=== PATIENT | male | born 1995 | race Two or more races ===

== ENCOUNTER 2017-09-07 14:36 | Inpatient (IN) | payer BC ==
--- NOTE | 2017-09-07 14:46 | ED PDOC ---
Arrival/HPI - General Time Seen by Provider: 09/07/17 14:36 Historian: Patient - History of Present Illness Narrative History of Present Illness (Text): 09/07/17 14:43 A 21 year old male is a psychiatric transfer from [facility]. The patient was seen and accepted to the psychiatric service upon arrival. The patient currently denies fevers, chills, headache, dizziness, chest pain, shortness of breath, dyspnea on exertion, cough, abdominal pain, nausea, vomiting, diarrhea, back pain, neck pain, urinary/bowel changes, or any other complaint. Time/Duration: Prior to Arrival Symptom Onset: Sudden Symptom Course: Unchanged Activities at Onset: Rest, Light Context: Other ([facility]) Past Medical History - Provider Review Nursing Documentation Reviewed: Yes Family/Social History - Physician Review Nursing Documentation Reviewed: Yes Family/Social History: No Known Family HX Allergies/Home Meds Allergies/Adverse Reactions: Allergies No Known Allergies Allergy (Verified 09/07/17 14:44) Home Medications: Home Meds Medication Instructions Recorded Confirmed Risperidone [Risperdal] 0 mg PO DAILY 09/07/17 09/07/17 Review of Systems - Physician Review All systems were reviewed & negative as marked: Yes - Review of Systems Constitutional: absent: Fevers, Night Sweats Respiratory: absent: SOB, Cough Cardiovascular: absent: Chest Pain, DEWITT Gastrointestinal: absent: Abdominal Pain, Stool Changes, Diarrhea, Nausea, Vomiting Genitourinary Male: absent: Urinary Output Changes Musculoskeletal: absent: Back Pain, Neck Pain Neurological: absent: Headache, Dizziness Psychiatric: Other (Transfer to psychiatric service from [facility].) Physical Exam Vital Signs Reviewed: Yes Vital Signs Temp Pulse Resp BP Pulse Ox 09/07/17 14:45 98.2 F 92 H 16 132/70 100 Temperature: Afebrile Blood Pressure: Normal Pulse: Tachycardic Respiratory Rate: Normal Appearance: Positive for: Well-Appearing, Non-Toxic, Comfortable Pain Distress: None Mental Status: Positive for: Alert and Oriented X 3 - Systems Exam Head: Present: Atraumatic, Normocephalic Pupils: Present: PERRL Conjunctiva: Present: Normal Mouth: Present: Moist Mucous Membranes Neck: Present: Normal Range of Motion Respiratory/Chest: Present: Clear to Auscultation, Good Air Exchange. No: Respiratory Distress, Accessory Muscle Use Cardiovascular: Present: Regular Rate and Rhythm, Normal S1, S2. No: Murmurs Abdomen: Present: Normal Bowel Sounds. No: Tenderness, Distention, Peritoneal Signs Back: Present: Normal Inspection Upper Extremity: Present: Normal Inspection. No: Cyanosis, Edema Lower Extremity: Present: Normal Inspection. No: Edema Neurological: Present: GCS=15, CN II-XII Intact, Speech Normal Skin: Present: Warm, Dry, Normal Color. No: Rashes Psychiatric: Present: Alert, Oriented x 3, Normal Insight, Normal Concentration Medical Decision Making ED Course and Treatment: 09/07/17 14:47 Impression: A 21 year old male presents to the emergency department as a psychiatric transfer from [facility]. Plan: -- Reassess and disposition Progress Notes: - Scribe Statement The provider has reviewed the documentation as recorded by the Scribe Felicita Becerra Provider Scribe Attestation: All medical record entries made by the Scribe were at my direction and personally dictated by me. I have reviewed the chart and agree that the record accurately reflects my personal performance of the history, physical exam, medical decision making, and the department course for this patient. I have also personally directed, reviewed, and agree with the discharge instructions and disposition. Disposition/Present on Arrival - Present on Arrival Any Indicators Present on Arrival: No - Disposition Have Diagnosis and Disposition been Completed?: Yes Diagnosis: Depression Disposition: HOSPITALIZED Disposition Time: 04:30 Patient Problems: Current Active Problems Problem Status Onset Depression Acute Condition: STABLE
[2017-09-07] MEDS ORDERED: Magnesium Hydroxide Susp 30 ml UD PO PRN (16:36)
[2017-09-07 22:28] VITALS: O2SAT 99
--- NOTE | 2017-09-08 00:45 | PCM.BM ---
<Mario Santa C - Last Filed: 09/08/17 00:42> Treatment Plan Problems - Problems identified on initial assessmt PARANOID DISORDER Date Initiated: 09/07/17 Time Initiated: 20:00 Assessment reference: NA Status: Active ANXIETY Date Initiated: 09/07/17 Time Initiated: 20:00 Treatment assets and liabiliti Patient Assests: cooperative, self-reliant, ADL independent, physically healthy , good support system, negotiates basic needs, cognitively intact Patient Liabilities: financial problems - Milieu Protocol Maintain good personal hygiene: daily Encourage regular showers, every shift Remind patient to perform daily oral care Maintain personal safety: every shift Educate patient to report safety concerns to staff, every shift Monitor environment for contraband/sharps Medication safety: Monitor for expected outcome, potential side effects: every shift, Assess readiness for medication education: every shift Family Contact Family involvement: Family/SO is involved Family contact: Patient agrees to contact Discharge/Continuing Care - Education Needs Education Needs: Patient Medication, Patient Diagnosis/Disease Process, Patient Coping Skills, Patient Community resources, Patient Activities of Daily Living, Patient Health Practices/Safety, Patient Personal Hygiene/Grooming, Patient Aftercare Safety Plan - Discharge Discharge Criteria: Tolerates medication w/o severe side effects, Free of paranoid thoughts, Free of agitation, Normal sleep pattern, Ability to care for self <Juliana Mccoy A - Last Filed: 09/09/17 14:56> Treatment Plan Problems - Problems identified on initial assessmt PARANOID DISORDER Date Initiated: 09/07/17 Time Initiated: 20:00 Assessment reference: NA Status: Active ANXIETY Date Initiated: 09/07/17 Time Initiated: 20:00 ANXIETY Date Initiated: 09/07/17 Time Initiated: 20:00 - Diagnosis (1) Schizoaffective disorder Status: Acute Interventions: 09/09/17 10:12 Psychoeducation/psychotherapy Psychopharmacology/adjustment of medications as needed/ monitoring possible side effects Evaluate pt on daily basis Compliance with medications and follow up appointments Long acting medication discussed with pt, pt was noncompliant with meds Suicide and homicide risk assessment and prevention, coping strategies, safety plan Relapse prevention Reduction of symptoms Improve functional status Possible assertive community treatment Cognitive behavioral therapy Family involvement, pt give consent for collaterals, SW asked to give a call Possible social skill training as outpatient 12/04/17 14:56 <Mick Monae - Last Filed: 09/10/17 16:54> Treatment Plan Problems - Problems identified on initial assessmt Altered Thought Process Date Initiated: 09/10/17 Time Initiated: 16:56 Assessment reference: NA Status: Active Priority: 1 Delusions Date Initiated: 09/10/17 Time Initiated: 16:56 Status: Active Priority: 2 <Argenis Lawson - Last Filed: 09/13/17 10:01> Family Contact Family involvement: Family/SO is involved Family contact: Patient agrees to contact Family contact name: Benson Lin, brother Family contacted how many times per week?: 2
[2017-09-08 07:44] LABS: CHOLESTEROL 129 mg/dL (130-200); GLUCOSE,FASTING 86 mg/dL (65-110)
--- NOTE | 2017-09-08 10:18 | PCM.PSYCH ---
Initial Psychiatric Evaluation - Initial Psychiatric Evaluation Type of Admission: Voluntary History of Present Illness and Precipitating Events: Patient is a single 21 year old male with reported history of bipolar disorder and schizophrenia (likely Schizoaffective disorder), at least 10 prior psychiatric hospitalizations-just recently 2011, noncompliance with medications for at least three months, who was transferred from [facility] after he was brought in by ambulance accompanied by his brother. Apparently patient became lost wandering in the community and requested help from a stranger to call his family. The lady called the police because she was concerned that he was behaving strangely. ER records from [facility] indicated that brother was interviewed and reported patient has been a decompensating since stopping his medications a few months ago. Patient has been vegetating and isolating in his room. His hygiene and sleep have been poor. Parents are also very concerned about patient wandering unknown places for hours at a time. Brother also indicated patient punched a wall and verbalize suicidal thoughts last week. I met with patient at bedside. He is disheveled and malodorous. He is aware that is September 2017 however doesn't know where he is. He looks quite preoccupied and responses are generally vague and guarded. Patient initially denies depression and then admits to feeling depressed sometimes. He doesn't know whether he's hopeless or hopeful. He doesn't appear to fully comprehend the question. He denies hallucinations, overt delusions were not elicit during our interview this morning. He is poorly related and his insight about his symptoms and diagnosis is superficial. Thus far he has been in control on the unit and there were no behavioral issues overnight. Patient denies any acute discomfort or pain during my interview with him this morning and has been tolerating medications prescribed thus far. SOCIAL HISTORY Patient was born and raised in [place]. He is single and denies having any children. He lives with his mother and father and brother. He's unemployed. Patient graduate high school. Patient denies any drug or alcohol or tobacco use. PSYCHIATRIC HISTORY [place] records indicate that patient has been psychiatrically hospitalized more than 10 times, most recently in 2011. Patient reports that he used to take risperdal and cogentin but doesn't recall his most recent dose. [place] records also indicate the patient took invega in the past. Patient denies any current outpatient psychiatric treatment. Patient denies having any history of suicide attempts Current Medications: Active Medications Generic Name Dose Route Start Last Admin Trade Name Freq PRN Reason Stop Dose Admin Acetaminophen 650 mg 09/07/17 16:36 Tylenol 325mg Tab PO Q4H PRN Pain, moderate (4-7) Haloperidol 5 mg 09/07/17 18:12 09/07/17 21:17 Haldol PO 5 mg Q6H PRN Administration Anxiety Protocol Haloperidol Lactate 5 mg 09/07/17 17:58 Haldol IM Q6H PRN Agitation Protocol Lorazepam 0.5 mg 09/07/17 22:00 09/07/17 21:17 Ativan PO 0.5 mg ACHS JOSELINE Administration Protocol Lorazepam 2 mg 09/07/17 18:09 Ativan PO Q6H PRN Anxiety Protocol Lorazepam 2 mg 09/07/17 18:10 Ativan IM Q6H PRN Agitation Protocol Magnesium Hydroxide 30 ml 09/07/17 16:36 Milk Of Magnesia PO DAILY PRN Constipation Risperidone 1 mg 09/07/17 22:00 09/07/17 21:17 Risperdal Tab PO 1 mg ACHS JOSELINE Administration Protocol Zaleplon 5 mg 09/07/17 22:00 Sonata PO HS PRN Insomnia Past Psychiatric History - Past Psychiatric History Pertinent Medical Hx (Current Medical&Sleep Prob, Allergies): Allergies Allergy/AdvReac Type Severity Reaction Status Date / Time No Known Allergies Allergy Verified 09/07/17 14:44 Risperidone [Risperdal] 0 mg PO DAILY 09/07/17 Mental Status Examination - Personal Presentation Personal Presentation: Looks stated age - Affect Affect: Constricted, Flat - Motor Activity Motor Activity: Calm - Reliability in Providing Information Reliability in Providing Information: Poor, due to alteration in thoughts - Speech Speech: Disorganized - Mood Mood: Depressed - Formal Thought Process Formal Thought Process: Paranoia, Loosening of associations - Obsessions/Compulsions Obsessions: No Compulsions: No - Cognitive Functions Orientation: Person Attention/Concentration: Easily distracted Estimate of Intelligence: Average Judgement: Imparied, as evidence by: Poor judgement, Imparied, as evidence by: Lack of insight into illness - Risk Risk: Suicidal, Diminished functioning - Strength & Assets Inventory Strength & Assets Inventory: Family support DSM 5 DX - DSM 5 DSM 5 Diagnosis: Schizoaffective Disorder - Recommended/Plan of Treatment Treatment Recommendations and Plan of Treatment: -group, milieu and supportive treatment -Risperdal 2 mg AM and HS for disorganization -Ativan 1 mg AM and HS for thought blocking and mood control as well as EPS prophylaxis -Sonata 5 mg HS prn: insomnia -awaiting medical consult -Vitals reviewed and noted below: Selected Entries 09/07/17 09/07/17 14:45 22:27 Temperature 98.2 F Pulse Rate 92 H 92 H Respiratory 16 20 Rate Blood Pressure 132/70 118/72 [facility] CBC, H/H, PLATELETS WNL UDS NEGATIVE, BAL<10 CHEM 14 WNL [facility]S 09/08/17 09/08/17 07:00 07:00 Fasting Glucose 86 Triglycerides 36 Cholesterol 129 L LDL Cholesterol Direct 70 HDL Cholesterol 49 TSH 3rd Generation 2.17 - Smoking Cessation Smoking Cessation Initiated: No
--- NOTE | 2017-09-08 21:48 | CON ---
DATE: HISTORY OF PRESENT ILLNESS: I met him in his room on the psychiatric floor, he has got very bizarre behavior. He sat down on his bed when we spoke. He comes here from [facility], depression and paranoia. He is very odd man. He is a 21-year-old man transferred from the psychiatric unit to [place] psychiatric unit for his depression, paranoid behavior and odd behavior. He is comfortable at this time. No chest pain. No shortness of breath. No abdominal pain. Apparently, it was sudden onset. FAMILY HISTORY: He denies any family history. ALLERGIES: NO KNOWN DRUG ALLERGIES. SOCIAL HISTORY: No drugs. No smoker. No alcohol. PAST SURGICAL HISTORY: No surgeries. MEDICATIONS: He does take Risperdal, he was not sure why. He states he wants to work on [employer] food business. He does not have a job. He is not in school. REVIEW OF SYSTEMS: No acute vision or hearing changes. No sore throat. No headaches. No shortness of breath. No chest pain. No dyspnea on exertion. No abdominal pain. No problems eating or going to the bathroom. No diarrhea, constipation, nausea or vomiting. No problems urinating. No back pain. No neck pain. No headache or dizziness. Just out of sorts, mentally depressed and he is definitely has paranoid feel to him. PHYSICAL EXAMINATION: VITAL SIGNS: He has a 98.2 temperature, 92 pulse, 16 respiratory rate, 132/78 blood pressure and 100% O2 sat on room air. HEENT: Head is atraumatic and normocephalic. Extraocular muscles intact. Pupils are equal and reactive to light. Throat is moist. NECK: Supple. HEART: Regular rate. LUNGS: Decreased breath sounds, but clear to auscultation. ABDOMEN: Soft. EXTREMITIES: No edema. NEUROLOGIC: GCS is 15. Cranial nerves II through XII grossly intact. He is alert and oriented x3. He is very odd. LABORATORY DATA: He had some blood tests. He had an 86 fasting sugar, 36 triglycerides, 129 cholesterol, LDL 70, HDL 49 and TSH 2.17. I will order a more thorough blood test for tomorrow. ASSESSMENT AND PLAN: We will continue medical involvement and psychiatric care. He is currently on Ativan, Haldol, milk of magnesia, Risperdal, Sonata, Tylenol. I will order labs for tomorrow. Hopefully, he will continue to improve psychologically. At this time, I agree with the depression and paranoid diagnosis and will see what we can find medically. Thank you for allowing me to participate in the care of this young man. Mikey Hurtado DO
[2017-09-09 07:11] LABS: HEMATOCRIT 42.2 % (42.0-52.0); MEAN CELL VOLUME 86.8 fl (80.0-105.0); MEAN CORPUSCULAR HEMOGLOBIN 30.7 pg (25.0-35.0); MEAN CORPUSCULAR HGB CONC 35.3 g/dl (31.0-37.0); RED CELL DISTRIBUTION WIDTH 13.3 % (11.5-14.5); WHITE BLOOD COUNT 6.1 10^3/ul (4.5-11.0)
[2017-09-09 07:30] LABS: ALB/GLOB RATIO 1.7 (1.1-1.8); ALKALINE PHOSPHATASE 57 U/L (38-126); ALT/SGPT 27 U/L (7-56); AST/SGOT 20 U/L (17-59); BILIRUBIN,TOTAL 1.5 mg/dL (0.2-1.3); BLOOD UREA NITROGEN 22 mg/dL (7-21); CALCIUM 9.8 mg/dL (8.4-10.5); CARBON DIOXIDE 27 mmol/L (21-33); CHLORIDE 106 mmol/L (98-107); GFR AFRICAN-AMERICAN > 60; GLUCOSE,RANDOM 85 mg/dL (70-110); POTASSIUM 3.8 mmol/L (3.6-5.0); SODIUM 145 mmol/L (132-148)
--- NOTE | 2017-09-09 09:15 | PN ---
SUBJECTIVE: I saw him in his room in the psych floor. This morning, he was quite groggy, and he was not paying attention to me this morning. He is on Ativan, Haldol, milk of magnesia, Risperdal, Sonata, Tylenol. PHYSICAL EXAMINATION VITAL SIGNS: 97.5 temp, 78 pulse, 118/76 blood pressure, 16 respiratory rate, 99% sat on room air. HEENT: Head is atraumatic and normocephalic. HEART: Regular rate. EXTREMITIES: No edema. LABORATORY DATA: He has a 6.1 white count, 14.9 hemoglobin, 42.2 hematocrit, with 148 platelets, 145 sodium, potassium 3.8, BUN 22, creatinine 0.9, GFR greater than 62, sugar is 85, calcium 9.8, total bilirubin 1.5, AST 20, ALT 27, alkaline phosphatase 57, total protein 7, albumin 4.4, globulin 2.6, TSH 2.17, cholesterol 129, triglycerides 36, LDL 70, HDL 49, RPR is nonreactive. Being seen by psychiatry, and will continue to follow him for depression, paranoid, hopefully he will continue to improve. Mikey Hurtado DO
--- NOTE | 2017-09-09 17:45 | PCM.PYCHPN ---
Psychiatric Progress Note - Psychiatric Progress Note Patient seen today, length of contact: 30min\\ Patient Chief Complaint: "I don't want to talk because I don't know if I could trust you people, identifying now, I was going to the restaurant or something, I did not know what bus I should take, I was kind of confused" Problems Identified/Issues Discussed: Suicide/ homicide prevention, past psychiatric h/o, current psychiatric symptoms , medical problems, risk/benefits and alternatives of medications, medications compliance, coping strategies, substance abuse h/o, relapse prevention, importance of follow up with psychiatrist and therapist, discharge plan. Medical Problems: pt is relatively healthy was seen by medical doctor see notes for more details Diagnostic Results: 09/09/17 06:30 09/09/17 06:30 Lab Results 09/09/17 06:30: Sodium 145, Potassium 3.8, Chloride 106, Carbon Dioxide 27, Anion Gap 16, BUN 22 H, Creatinine 0.9, Est GFR ( Amer) > 60, Est GFR ( Non-Af Amer) > 60, Random Glucose 85, Calcium 9.8, Total Bilirubin 1.5 H, AST 20 , ALT 27, Alkaline Phosphatase 57, Total Protein 7.0, Albumin 4.4, Globulin 2.6 , Albumin/Globulin Ratio 1.7 09/09/17 06:30: WBC 6.1, RBC 4.86, Hgb 14.9, Hct 42.2, MCV 86.8, MCH 30.7, MCHC 35.3, RDW 13.3, Plt Count 148, MPV 9.0 09/08/17 07:00: RPR Nonreactive 09/08/17 07:00: TSH 3rd Generation 2.17 09/08/17 07:00: Fasting Glucose 86, Triglycerides 36, Cholesterol 129 L, LDL Cholesterol Direct 70, HDL Cholesterol 49 Vital Signs Temp Pulse Resp BP Pulse Ox 09/08/17 10:00 97.5 F L 78 16 118/76 09/07/17 22:27 92 H 20 118/72 99 09/07/17 14:45 98.2 F 92 H 16 132/70 100 DSM 5 Symptoms Update: as per 's evaluation: "Patient is a single 21 year old male with reported history of bipolar disorder and schizophrenia (likely Schizoaffective disorder), at least 10 prior psychiatric hospitalizations-just recently 2011, noncompliance with medications for at least three months, who was transferred from [facility] after he was brought in by ambulance accompanied by his brother. Apparently patient became lost wandering in the community and requested help from a stranger to call his family. The lady called the police because she was concerned that he was behaving strangely. ER records from [facility] indicated that brother was interviewed and reported patient has been a decompensating since stopping his medications a few months ago. Patient has been vegetating and isolating in his room. His hygiene and sleep have been poor. Parents are also very concerned about patient wandering unknown places for hours at a time. Brother also indicated patient punched a wall and verbalize suicidal thoughts last week." patient was seen at the treatment team meeting, patient presented to have very poor personal hygiene, uncombed long hair, not shaved for months, poor dental hygiene, presented to be disorganized in his thoughts and behavior, patient was paranoid, difficulties to express his thoughts due to severe thought blocking. as per staff pt was disorganized, but was compliant with meds, pt was agitated, restless yesterday. patient's pharmacy was called [facility] [phone] Benztropine 1 mg twice a day field in June Fluphenazine 5 mg twice a day filled in June Zoloft 50 mg daily filled in June Paliperidone 3 mg by mouth daily filled in June all meds were given by pt gave permission to speak to his brother, SW will call to the pt's family for collaterals Risperdal was started by Dr. Jha 20 mg twice a day, Cogentin also were resumed , we'll consider paliperidone as well as Prolixin. DSM 5 Diagnosis: Schizoaffective Disorder Medication Change: Yes Medical Record Reviewed: Yes Consults ordered or reviewed: medical consult appreciated Mental Status Examination - Cognitive Function Orientation: Person Memory: Impaired Attention: Poor Concentration: Poor Association: Loose Fund of Knowledge: Poor - Mood Mood: Depressed - Affect Affect: Constricted, Flat - Speech Speech: Appropriate (bud disorganized) - Formal Thought Process Formal Thought Process: Paranoia, Loosening of associations, Circumstantial Psychotic Thoughts and Behaviors: pt presented to be disorganized internally preoccupied - Suicidal Ideation Suicidal Ideation: No Plan: denied - Homicidal Ideation Homicidal Ideation: No Plan: denied Goal/Treatment Plan - Goal/Treatment Plan Need for Continued Stay: Remain at risks for inpatient hospitalization, Severe depression anxiety, Discharge may exacerbated symptoms, Severe functional impairment Progress Toward Problem(s) and Goals/Treatment Plan: Milieu/structure/supportive therapy Medical consult appreciated, see medical team note for more detailed info SW consultation for discharge plan and social issues Med management Risperdal 2 mg AM and HS for disorganization cogentin 1mg po amhs for EPS Ativan 1 mg AM and HS for thought blocking and mood control as well as EPS prophylaxis Sonata 5 mg HS prn: insomnia Family involvement Follow up on labs Will monitor closely evaluation for d/c planning Pt was educated about risk/benefits and alternatives of medications, coping strategies (safety plan, suicide prevention), relapse prevention, importance of follow up with psychiatrist and therapist, stay away from drugs/alcohol/smoking Estimated Date of D/C: 09/20/17 (will monitor closely)
--- NOTE | 2017-09-10 12:37 | PN ---
DATE: SUBJECTIVE: I saw him walking in the halls at [address] Psych Floor. We had nice conversation and he is doing better. He is starting to feel better. He is on Ativan, Cogentin, Haldol, milk of magnesia, Risperdal, Sonata, and Tylenol. He is eating well. He is in good spirits. PHYSICAL EXAMINATION: VITAL SIGNS: He has 97.5 temperature, 84 pulse, 122/75 blood pressure, 16 respiratory rate, and 99% O2 sat on room air. HEENT: Head is atraumatic, normocephalic. HEART: Regular rate. LUNGS: Clear to auscultation. ABDOMEN: Soft. EXTREMITIES: No edema. LABORATORY DATA: He has 6.1 white count, 14.9 hemoglobin, and 148 platelets. Sodium 145, potassium 3.8, BUN 22, creatinine 0.9, GFR greater than 62, sugar is 85, calcium 9.8, total bilirubin is 1.5, AST is 20, ALT is 27, mihai phos is 57, total protein is 7, and albumin is 4.4. RPR is nonreactive. ASSESSMENT AND PLAN: He is for the most part comfortable. He may be slightly better than when he came in. We will continue with aggressive treatment and care as per Psychiatry. He has severe depression and anxiety. I will follow along. Mikey Hurtado DO
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
--- NOTE | 2017-09-11 09:47 | PN ---
DATE: SUBJECTIVE: I saw him in his bed this morning. He slept well. He is alert. He is comfortable. He tells me he is feeling better, improving. He is going to groups. He is eating his food. He is still little bit off mentally, but he is definitely better than when I first saw him. PHYSICAL EXAMINATION: VITAL SIGNS: He has got 97.5 temperature, 71 pulse, 112/70 blood pressure, 21 respiratory rate. HEART: Regular rte. LUNGS: Clear to auscultation. EXTREMITIES: No edema. LABORATORY DATA: Last labs from , he did very well. His BUN is 22, creatinine 0.9. MEDICATIONS: He is on Ativan, Cogentin, Haldol, milk of magnesia, Risperdal, Sonata, Tylenol. ASSESSMENT AND PLAN: I asked him to drink more water. He needs aggressive psychiatric care. He is here for depression, anxiety, paranoia. Continue with aggressive treatment and care. I will follow up. Mikey Hurtado DO
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
--- NOTE | 2017-09-12 11:24 | PN ---
DATE: SUBJECTIVE: I saw him in the hospital Psychiatric floor. He is doing much better. He is very alert. He is talking to me better. He is smiling and he seems to be more comfortable in the Psych floor. He said he is going to take a shower this morning. He is eating. He is participating. He is smiling and in better spirits. MEDICATIONS: He is on Ativan, Cogentin, Haldol, milk of magnesia, Risperdal, Sonata, Tylenol. PHYSICAL EXAMINATION: VITAL SIGNS: 98.1 temp, 70 pulse, 120/70 blood pressure, 20 respiratory rate. HEENT: Head is atraumatic and normocephalic. Throat is moist. NECK: Supple. HEART: Regular rate. LUNGS: Clear to auscultation. ABDOMEN: Soft. EXTREMITIES: No edema. LABORATORY DATA: Labs on the , he did very well. ASSESSMENT AND PLAN: He has been seen by Psychiatry. We will continue with aggressive treatment and care on him. I do think he is improving from his depression, anxiety, and paranoia, and as per Psychiatry. Mikey Hurtado DO MTDD
--- NOTE | 2017-09-12 14:31 | PCM.PYCHPN ---
Psychiatric Progress Note - Psychiatric Progress Note Patient seen today, length of contact: 20 Patient Chief Complaint: "I am not sure but I think I am doing OK" Problems Identified/Issues Discussed: Patient is more relaxed, less anxious and he does not bring up any of his earlier concerns regarding wanting to dial 911 or worry over his or his family' s safety. He is not pacing around the unit and is sleeping better. He denies any hallucinations, delusions or paranoia. His paranoia is not evident at this time. He still is not able to take part in unit activities. Medication Change: No Medical Record Reviewed: Yes Mental Status Examination - Cognitive Function Orientation: Person Memory: Impaired Attention: Poor Concentration: Poor Association: Loose Fund of Knowledge: Poor - Mood Mood: Depressed - Affect Affect: Constricted, Flat - Speech Speech: Appropriate (bud disorganized) - Formal Thought Process Formal Thought Process: Paranoia, Loosening of associations, Circumstantial - Suicidal Ideation Suicidal Ideation: No - Homicidal Ideation Homicidal Ideation: No Goal/Treatment Plan - Goal/Treatment Plan Need for Continued Stay: Remain at risks for inpatient hospitalization, Severe depression anxiety, Discharge may exacerbated symptoms, Severe functional impairment Estimated Date of D/C: 09/20/17 (will monitor closely)
--- NOTE | 2017-09-13 09:56 | PCM.PYCHPN ---
Psychiatric Progress Note - Psychiatric Progress Note Patient seen today, length of contact: 25 MIN Patient Chief Complaint: "feeling better" Problems Identified/Issues Discussed: I reviewed recent notes and met with patient at bedside. I am familiar with patient from my initial assessment of him 5 days ago. He still appears unkempt and preoccupied though does seem more oriented and focused. He is aware that is September 2017 and that he is at [facility] however doesn't know the circumstances of his hospitalization. Responses are more spontaneous and fluent. He can express himself better but remains vague and guarded. Patient denies depression and flatly reports that he is "feeling better". He denies hallucinations "never have those", overt delusions were not elicit during our interview this morning. He remains poorly related though insight about his symptoms and diagnosis is improving. Thus far patient has been in control on the unit, family members feel he is getting better. Still paces at times and still cannot meaningfully take part in group discussions. There were no behavioral issues overnight. Diagnostic Results: Schizoaffective Disorder Medication Change: No Medical Record Reviewed: Yes Mental Status Examination - Cognitive Function Orientation: Person, Place Memory: Impaired Attention: Poor Concentration: Poor Association: Loose Fund of Knowledge: Poor - Mood Mood: Depressed ("feeling better") - Affect Affect: Constricted, Flat, Other ( Responses are more spontaneous and fluent. He can express himself better but remains vague and guarded.) - Speech Speech: Appropriate (bud disorganized) - Formal Thought Process Formal Thought Process: Paranoia, Loosening of associations, Circumstantial - Suicidal Ideation Suicidal Ideation: No - Homicidal Ideation Homicidal Ideation: No Goal/Treatment Plan - Goal/Treatment Plan Need for Continued Stay: Remain at risks for inpatient hospitalization, Severe depression anxiety, Discharge may exacerbated symptoms, Severe functional impairment Progress Toward Problem(s) and Goals/Treatment Plan: -group, milieu and supportive treatment -Risperdal 2 mg po TID for disorganization -Cogentin 1 mg po TID for EPS prophylaxis -Ativan 1 mg AM and HS for thought blocking and possible akathesia -Sonata 5 mg HS prn: insomnia -Appreciate f/u by Dr. Hurtado on 09/12/17 -Vitals reviewed and noted below: Selected Entries 12/07/17 12/07/17 12/08/17 08:07 16:46 06:53 Temperature 98.1 F 97.3 F L Pulse Rate 70 84 65 Respiratory 20 20 Rate Blood Pressure 120/70 114/66 110/70 -No new floor labs noted thus far. Estimated Date of D/C: 09/20/17 (will monitor closely)
--- NOTE | 2017-09-13 12:55 | PN ---
SUBJECTIVE: I saw him in his room, sitting in bed. He is alert. He is comfortable. He took his shower yesterday. He tells me he is taking his medications and he is eating. No acute problems or distress with me at this time. He is on Ativan, Cogentin, Haldol, milk of magnesia, Risperdal, Sonata, and Tylenol. PHYSICAL EXAMINATION: VITAL SIGNS: 97.3 temperature, 65 pulse, 110/70 blood pressure, 20 respiratory rate. HEENT: Head is atraumatic, normocephalic. GENERAL: He is alert. He is looking at me. He is talking calmly. HEART: Regular rate. LUNGS: Decreased breath sounds, but clear. ABDOMEN: Soft. EXTREMITIES: No edema. He is currently more calm than the first time I saw him. He is being seen by Psychiatry. He is here for severe depression, anxiety, and paranoia. I do think his paranoia has lifted some. As per Psychiatry, continue aggressive treatment and care and medication adjustment. Mikey Hurtado DO
--- NOTE | 2017-09-14 08:37 | PCM.PYCHPN ---
Psychiatric Progress Note - Psychiatric Progress Note Patient seen today, length of contact: 25 MIN Patient Chief Complaint: "feeling better" Problems Identified/Issues Discussed: I reviewed recent notes and met with patient at bedside. He still appears unkempt and preoccupied though does seem more oriented and focused than last weekend. He is oriented to month, year and location however only superficially understands the reasons for his admission. Responses are more spontaneous and fluent. He can express himself better but remains vague and guarded. Patient denies depression and flatly reports that he is "feeling better". He denies paranoia but looks paranoid and preoccupied. He still denies ever having hallucinations and overt delusions were not elicit during our interview this morning. Patient denies any new discomfort or pain. He doesn't appear to be in any physical distress. Thus far patient has been in control on the unit. Still paces at times and cannot meaningfully take part in group discussions. Paranoid about medications and refused a few of them. There were no behavioral issues overnight. Diagnostic Results: Schizoaffective Disorder Medication Change: No Medical Record Reviewed: Yes Mental Status Examination - Cognitive Function Orientation: Person, Place Memory: Impaired Attention: Poor Concentration: Poor Association: Loose Fund of Knowledge: Poor - Mood Mood: Depressed ("feeling better") - Affect Affect: Constricted, Flat, Other ( Responses are more spontaneous and fluent. He can express himself better but remains vague and guarded.) - Speech Speech: Appropriate (bud disorganized) - Formal Thought Process Formal Thought Process: Paranoia, Loosening of associations, Circumstantial - Suicidal Ideation Suicidal Ideation: No - Homicidal Ideation Homicidal Ideation: No Goal/Treatment Plan - Goal/Treatment Plan Need for Continued Stay: Remain at risks for inpatient hospitalization, Severe depression anxiety, Discharge may exacerbated symptoms, Severe functional impairment Progress Toward Problem(s) and Goals/Treatment Plan: -group, milieu and supportive treatment -Risperdal 2 mg po TID for disorganization -Cogentin 1 mg po TID for EPS prophylaxis -Ativan 1 mg AM and HS for thought blocking and possible akathesia -Sonata 5 mg HS prn: insomnia -Appreciate f/u by Dr. Hurtado on 09/12/17 and 09/13/17 -Vitals reviewed and noted below: Selected Entries 09/12/17 09/12/17 09/13/17 08:07 16:46 06:53 Temperature 98.1 F 97.3 F L Pulse Rate 70 84 65 Respiratory 20 20 Rate Blood Pressure 120/70 114/66 110/70 09/13/17 15:00 Temperature Pulse Rate 66 Respiratory Rate Blood Pressure 95/61 L -No new floor labs noted thus far. Estimated Date of D/C: 09/20/17 (will monitor closely)
--- NOTE | 2017-09-14 12:58 | PN ---
DATE: SUBJECTIVE: I saw him in his room. He is walking around his room. He is alone. He is comfortable in no acute distress. He is eating. He is looking forward to lunch. He is in good spirits at this time. Not sure if he is truly participating. MEDICATIONS: He is on Ativan, Cogentin, Haldol, milk of magnesia, Risperdal, Sonata, and Tylenol. PHYSICAL EXAMINATION: VITAL SIGNS: He has a 97.3 temperature, 65 pulse, 110/70 blood pressure, 20 respiratory rate. HEENT: Head is atraumatic, normocephalic. HEART: Regular rate. LUNGS: Clear to auscultation. ABDOMEN: Soft. EXTREMITIES: No edema. LABORATORY DATA: Last labs on the 09/09/2017, he did well. ASSESSMENT AND PLAN: He is being seen by psychiatry. He has got multiple issues, severe depression, anxiety, and paranoid. Continue to follow him. I am encouraging him to participate and eat meals as per Psychiatry. Mikey Hurtado DO
--- NOTE | 2017-09-15 08:53 | PCM.PYCHPN ---
Psychiatric Progress Note - Psychiatric Progress Note Patient seen today, length of contact: 25 min Patient Chief Complaint: "feeling better" Problems Identified/Issues Discussed: I reviewed recent notes and met with patient at bedside. He still appears unkempt and preoccupied though does seem more oriented and focused than last weekend. He is oriented to month, year and location however only superficially understands the reasons for this admission. Responses are more spontaneous and fluent. He can express himself better but remains vague and guarded. Patient denies depression and flatly reports that he is "feeling better". He denies paranoia but looks paranoid and preoccupied. He still denies ever having hallucinations and overt delusions were not elicit during our interview this morning. Patient denies any new discomfort or pain. He doesn't appear to be in any physical distress. Thus far patient has been in control on the unit. Still paces at times and cannot meaningfully take part in group discussions. Paranoid about medications and refused a few of them over the weekend. Patient has been a little impatient for discharge however there have been no major behavioral issues. He continued to demonstrate poor insight into the severity of his symptoms, diagnosis and necessity of hospitalization. Diagnostic Results: Schizoaffective Disorder Medication Change: No Medical Record Reviewed: Yes Mental Status Examination - Cognitive Function Orientation: Person, Place Memory: Impaired Attention: Poor Concentration: Poor Association: Loose Fund of Knowledge: Poor - Mood Mood: Depressed ("feeling better") - Affect Affect: Constricted, Flat, Other ( Responses are more spontaneous and fluent. He can express himself better but remains vague and guarded.) - Speech Speech: Appropriate (bud disorganized) - Formal Thought Process Formal Thought Process: Paranoia, Loosening of associations, Circumstantial - Suicidal Ideation Suicidal Ideation: No - Homicidal Ideation Homicidal Ideation: No Goal/Treatment Plan - Goal/Treatment Plan Need for Continued Stay: Remain at risks for inpatient hospitalization, Severe depression anxiety, Discharge may exacerbated symptoms, Severe functional impairment Progress Toward Problem(s) and Goals/Treatment Plan: -group, milieu and supportive treatment -Risperdal 2 mg po TID for disorganization -Cogentin 1 mg po TID for EPS prophylaxis -Ativan 1 mg AM and HS for thought blocking and possible akathesia -Sonata 5 mg HS prn: insomnia -Appreciate f/u by Dr. Hurtado on 09/12/17, 09/13/17 and 09/14/17~refer to medical note for more details -Vitals reviewed and noted below: Selected Entries 09/13/17 09/13/17 09/14/17 06:53 15:00 16:15 Temperature 97.3 F L Pulse Rate 65 66 74 Respiratory 20 Rate Blood Pressure 110/70 95/61 L 114/64 -No new weekend floor labs noted thus far. Estimated Date of D/C: 09/20/17 (will monitor closely)
--- NOTE | 2017-09-15 17:42 | PN ---
DATE: SUBJECTIVE: He is doing well, feeling well. He is eating well. Good spirits. He is on Ativan, Cogentin, Haldol, milk of magnesia, Risperdal, Sonata, and Tylenol. He has been walking around on bare feet. I asked him to put on socks. He was very agreeable. PHYSICAL EXAMINATION: VITAL SIGNS: Temperature 97.7, pulse 54, blood pressure 99/60, respiratory rate 20. HEENT: Head is atraumatic and normocephalic. HEART: Regular rate. LUNGS: Clear to auscultation. ABDOMEN: Soft. EXTREMITIES: No edema. MEDICATIONS: He is on Ativan, Cogentin, Haldol, milk of magnesia, Risperdal, Sonata, and Tylenol. ASSESSMENT AND PLAN: He is being seen by Psychiatry. He is here for severe depression, anxiety, and paranoid thoughts. I do think he is starting to get a little bit better. Continue with aggressive treatment as per Psychiatry. We encouraged him to eat and participate and wear socks. Mikey Hurtado DO
--- NOTE | 2017-09-16 13:45 | PCM.PYCHPN ---
Psychiatric Progress Note - Psychiatric Progress Note Patient seen today, length of contact: 25 min Patient Chief Complaint: "I think I am doing better" Problems Identified/Issues Discussed: Patient indicates he is feeling much better. He is more organized in his appearance, his conversation is more coherent and logical. He would like to be discharged soon. Discussed the need for improved hygiene, attendance at group, and the importance of follow up care with medication compliance reinforced. Patient is able to process and take part in this discussion which he has not previously been able to do. Risperdal was increased to maximize efficacy. Medication Change: Yes (Risperdal increased ) Medical Record Reviewed: Yes Mental Status Examination - Cognitive Function Orientation: Person, Place Memory: Impaired Attention: Poor Concentration: Poor Association: Loose Fund of Knowledge: Poor - Mood Mood: Depressed ("feeling better") - Affect Affect: Constricted, Flat, Other ( Responses are more spontaneous and fluent. He can express himself better but remains vague and guarded.) - Speech Speech: Appropriate (bud disorganized) - Formal Thought Process Formal Thought Process: Paranoia, Loosening of associations, Circumstantial - Suicidal Ideation Suicidal Ideation: No - Homicidal Ideation Homicidal Ideation: No Goal/Treatment Plan - Goal/Treatment Plan Need for Continued Stay: Remain at risks for inpatient hospitalization, Severe depression anxiety, Discharge may exacerbated symptoms, Severe functional impairment Estimated Date of D/C: 09/20/17 (will monitor closely)
--- NOTE | 2017-09-16 13:58 | PN ---
DATE: SUBJECTIVE: I saw him in his room. He is walking around his room. He is comfortable. No acute complaints. He slept fairly well. He is hungry this morning, looking forward to breakfast. He is still walking around bare feet. PHYSICAL EXAMINATION: VITAL SIGNS: 97.7 temperature, 72 pulse, 103/63 blood pressure, 20 respiratory rate. HEENT: Head is atraumatic and normocephalic. HEART: Regular rate. LUNGS: Clear to auscultation. ABDOMEN: Soft. EXTREMITIES: Have no edema. MEDICATIONS: He is on Ativan, Cogentin, Haldol, milk of magnesia, Risperdal, Sonata, and Tylenol. PLAN: As per Psychiatry, we will continue with aggressive treatment and care. He is a bit better and he has got a ways to go. He is here for severe depression, anxiety and paranoia. Mikey Hurtado DO
--- NOTE | 2017-09-17 09:24 | PN ---
DATE: SUBJECTIVE: I saw him in his room in bed. He is sleeping well. I told him breakfast was here. He is going to getup and go for breakfast. PHYSICAL EXAMINATION: VITAL SIGNS: Temperature 97.1, pulse 58, blood pressure 104/65, and respiratory rate 20. HEENT: Head is atraumatic and normocephalic. HEART: Regular rate. LUNGS: Decreased breath sounds. ABDOMEN: Soft. EXTREMITIES: No edema. MEDICATIONS: He is on Ativan, Cogentin, Haldol, milk of magnesia, Risperdal, sonata, and Tylenol. ASSESSMENT AND PLAN: He is being seen by Psychiatry. He is here for severe depression, anxiety, and paranoia. He is slowly getting organized or may be less disorganized. Continue as per Psychiatry. Encouraged him to participate in groups and go out for meals and wear socks. Mikey Hurtado DO
--- NOTE | 2017-09-17 19:08 | PCM.PYCHPN ---
Psychiatric Progress Note - Psychiatric Progress Note Patient seen today, length of contact: 25 min Patient Chief Complaint: "I think I am doing better and I know my rights. I want to go home" Problems Identified/Issues Discussed: Patient continues to improve, though his insight regarding his progress is poor. He is easily directable. He is showering daily but needs reminding to do this. He is taking his medication and appears to have connected that the medication is helping him to think better and to feel better. He was encouraged to take part in unit activities. His eye contact and quality of interaction are normalizing though he is childlike in presentation. Medication Change: No Medical Record Reviewed: Yes Mental Status Examination - Cognitive Function Orientation: Person, Place, Time Memory: Impaired Attention: Poor Concentration: Poor Association: Loose Fund of Knowledge: Poor - Mood Mood: Neutral - Affect Affect: Constricted, Flat, Other ( Responses are more spontaneous and fluent. He can express himself better but remains vague and guarded.) - Speech Speech: Appropriate (bud disorganized), Soft - Formal Thought Process Formal Thought Process: Paranoia, Loosening of associations, Circumstantial - Suicidal Ideation Suicidal Ideation: No - Homicidal Ideation Homicidal Ideation: No Goal/Treatment Plan - Goal/Treatment Plan Need for Continued Stay: Remain at risks for inpatient hospitalization, Severe depression anxiety, Discharge may exacerbated symptoms, Severe functional impairment Estimated Date of D/C: 09/20/17 (will monitor closely)
--- NOTE | 2017-09-18 11:45 | PN ---
DATE: SUBJECTIVE: I saw him in the psychiatric floor in his room. He is walking around his room. Waiting for breakfast. He pleasantly actually brushed his teeth today. He is taking care of himself I think hygiene wynn better. He took a shower today. He is on Ativan, Cogentin, Haldol, milk of magnesia, Risperdal, sonata, and Tylenol. He is still a little bit off mentally. PHYSICAL EXAMINATION: VITAL SIGNS: He has 97.4 temperature, 62 pulse, 101/64 blood pressure, and 20 respiratory rate. HEENT: Head is atraumatic, normocephalic. Throat is moist. NECK: Supple. HEART: Regular rate. LUNGS: Clear to auscultation. ABDOMEN: Soft. EXTREMITIES: No edema. He is on Ativan, Cogentin, Haldol, milk of magnesia, Risperdal, sonata, and Tylenol. Medically, he seems to be fairly stable. His last blood sugar was 127. I will do hemoglobin A1c and a blood test tomorrow to check him. He is being seen by Psychiatry. His multiple issues are severe depression, anxiety, and paranoia. I am going to recheck his blood sugars. I encouraged him to participates in group and eat and he was very pleasant today. Mikey Hurtado DO
--- NOTE | 2017-09-18 13:25 | PN ---
ADDENDUM DATE: SUBJECTIVE: I saw him in the room in psychiatric floor. He is walking around his room. He is pleasant. He brushed his teeth. He is taking more care of his hygiene. He has had no complaints. He has been trying to participate. He is taking his medications, which is Ativan, Cogentin, Haldol, milk of magnesia, Risperdal, Sonata, and Tylenol. PHYSICAL EXAMINATION: VITAL SIGNS: Temperature 97.4, 62 pulse, 101/64 blood pressure, and 20 respiratory rate. HEENT: Head is atraumatic and normocephalic. Throat is most. NECK: Supple. HEART: Regular rate. LUNGS: Clear to auscultation. ABDOMEN: Soft. EXTREMITIES: No edema. LABORATORY DATA: His last lab, 127 blood sugar. I will check his labs tomorrow. We will also do hemoglobin A1c. ASSESSMENT AND PLAN: He is being seen by Psychiatry. I encouraged him to continue to take the medications and participate in groups. He is here for severe depression, anxiety, and paranoia. I am going to recheck his blood sugars plus do hemoglobin A1c and his labs. Mikey Hurtado DO
--- NOTE | 2017-09-18 15:17 | PCM.BM ---
Treatment Plan Problems - Problems identified on initial assessmt PARANOID DISORDER Date Initiated: 09/18/17 Time Initiated: 11:30 Assessment reference: NA Status: Active Comment: REMAIN DELUSIONAL AND PARANOID ,WITHDRAWN AND ISOLATIVE ANXIETY Date Initiated: 09/18/17 Time Initiated: 11:30 Assessment reference: NA Status: Active Comment: REMAIN PREOCCUPIED WITH MEDICATION ANXIETY Date Initiated: 09/07/17 Time Initiated: 20:00 Altered Thought Process Date Initiated: 09/18/17 Time Initiated: 16:56 Assessment reference: NA Status: Active Priority: 3 Comment: THOUGHTS REMAIN SCATTERED/ATENTION SPAN IS SHORT Delusions Date Initiated: 09/10/17 Time Initiated: 16:56 Status: Active Priority: 2 Treatment assets and liabiliti Patient Assests: cooperative, self-reliant, ADL independent, physically healthy , good support system, negotiates basic needs, cognitively intact Patient Liabilities: financial problems - Milieu Protocol Maintain good personal hygiene: daily Encourage regular showers, every shift Remind patient to perform daily oral care Maintain personal safety: every shift Educate patient to report safety concerns to staff, every shift Monitor environment for contraband/sharps Medication safety: Monitor for expected outcome, potential side effects: every shift, Assess readiness for medication education: every shift Milieu Narrative: -group, milieu and supportive treatment -Risperdal 2 mg po TID for disorganization -Cogentin 1 mg po TID for EPS prophylaxis -Ativan 1 mg AM and HS for thought blocking and possible akathesia -Sonata 5 mg HS prn: insomnia -Appreciate f/u by Dr. Hurtado on 09/12/17, 09/13/17 and 09/14/17~refer to medical note for more details -Vitals reviewed and noted below: Selected Entries 09/13/17 09/13/17 09/14/17 06:53 15:00 16:15 Temperature 97.3 F L Pulse Rate 65 66 74 Respiratory 20 Rate Blood Pressure 110/70 95/61 L 114/64 -No new weekend floor labs noted thus far. Family Contact Family involvement: Family/SO is involved Family contact: Patient agrees to contact Family contact name: Benson Lin, brother Family contacted how many times per week?: 2 Discharge/Continuing Care - Education Needs Education Needs: Patient Medication, Patient Diagnosis/Disease Process, Patient Coping Skills, Patient Community resources, Patient Activities of Daily Living, Patient Health Practices/Safety, Patient Personal Hygiene/Grooming, Patient Aftercare Safety Plan - Discharge Discharge Criteria: Tolerates medication w/o severe side effects, Free of paranoid thoughts, Free of agitation, Normal sleep pattern, Ability to care for self - Treatment Team Participation Patient/Family/SO Statement: -group, milieu and supportive treatment -Risperdal 2 mg po TID for disorganization -Cogentin 1 mg po TID for EPS prophylaxis -Ativan 1 mg AM and HS for thought blocking and possible akathesia -Sonata 5 mg HS prn: insomnia -Appreciate f/u by Dr. Hurtado on 09/12/17, 09/13/17 and 09/14/17~refer to medical note for more details -Vitals reviewed and noted below: Selected Entries 09/13/17 09/13/17 09/14/17 06:53 15:00 16:15 Temperature 97.3 F L Pulse Rate 65 66 74 Respiratory 20 Rate Blood Pressure 110/70 95/61 L 114/64 -No new weekend floor labs noted thus far. Treatment Plan Review - Problem PARANOID DISORDER Time Initiated: 20:00 ANXIETY Time Initiated: 20:00 ANXIETY Time Initiated: 20:00 Altered Thought Process Time Initiated: 16:56 Delusions Time Initiated: 16:56
--- NOTE | 2017-09-18 20:40 | PCM.PYCHPN ---
Psychiatric Progress Note - Psychiatric Progress Note Patient seen today, length of contact: 25 min Patient Chief Complaint: "I came here because they thought I wasn't acting right but I think I was" Problems Identified/Issues Discussed: Patient today appears to have an increase in symptoms. He keeps talking about the patient's bill of rights, he will not drink water on the unit except from the nurses station and continues dishevelled wearing same clothes since last Saturday. He became ill mentally by the end of high school, having his first hospitalization at that time. He has never worked, has a history of not taking his medication. He has been encouraged to consider a day program at discharge. Insight and judgment are poor patient does not "really believe" that he has a mental illness. He continues to deny any hallucinations, however he is suspicious and paranoid, evidently his first break involved not eating due to concerns about the food. Medication Change: No Medical Record Reviewed: Yes Mental Status Examination - Cognitive Function Orientation: Person, Place, Time Memory: Impaired Attention: Poor Concentration: Poor Association: Loose Fund of Knowledge: Poor - Mood Mood: Neutral - Affect Affect: Constricted, Flat, Other ( Responses are more spontaneous and fluent. He can express himself better but remains vague and guarded.) - Speech Speech: Appropriate (bud disorganized), Soft - Formal Thought Process Formal Thought Process: Paranoia, Loosening of associations, Circumstantial - Suicidal Ideation Suicidal Ideation: No - Homicidal Ideation Homicidal Ideation: No Goal/Treatment Plan - Goal/Treatment Plan Need for Continued Stay: Remain at risks for inpatient hospitalization, Severe depression anxiety, Discharge may exacerbated symptoms, Severe functional impairment Estimated Date of D/C: 09/20/17 (will monitor closely)
--- NOTE | 2017-09-19 11:07 | PN ---
DATE: SUBJECTIVE: I saw him in his room this morning. He slept well. He had some questions about his right because he is reading the right thing on the board in his room. He also is telling me his family is going to [place] on Saturday and wants to go with him. PHYSICAL EXAMINATION: VITAL SIGNS: He has 97.3 temperature, 67 pulse, 100/59 blood pressure, and 20 respiratory rate. HEENT: His head is atraumatic and normocephalic. HEART: Regular rate. LUNGS: Clear to auscultation. ABDOMEN: Soft. EXTREMITIES: No edema. MEDICATIONS: He is currently on Ativan, Cogentin, Haldol, milk of magnesia, Risperdal, Sonata, and Tylenol. LABORATORY DATA: He has 127 blood sugar. TSH is good . PLAN: Overall, he is comfortable this morning. He is here for severe depression, anxiety,paranoia, and high blood sugar. I believe, I am waiting for hemoglobin A1c to populate. Mikey Hurtado DO MTDD
--- NOTE | 2017-09-19 13:38 | PCM.PYCHPN ---
Psychiatric Progress Note - Psychiatric Progress Note Patient seen today, length of contact: 25 min Patient Chief Complaint: "I am doing better now, I washed my hair" Problems Identified/Issues Discussed: Patient is calmer today, and his appearance is slightly more organized. His insight continues poor in regards to his mental illness. He is still not able to tolerate groups, but is not pacing around with his delusional concerns. His appetite and sleep are good. He is still resistant to the idea of a day program. There is overall some improvement in his presentation. Medication Change: No Medical Record Reviewed: Yes Mental Status Examination - Cognitive Function Orientation: Person, Place, Time Memory: Impaired Attention: Poor Concentration: Poor Association: Loose Fund of Knowledge: Poor - Mood Mood: Neutral - Affect Affect: Constricted, Flat, Other ( Responses are more spontaneous and fluent. He can express himself better but remains vague and guarded.) - Speech Speech: Appropriate (bud disorganized), Soft - Formal Thought Process Formal Thought Process: Paranoia, Loosening of associations, Circumstantial - Suicidal Ideation Suicidal Ideation: No - Homicidal Ideation Homicidal Ideation: No Goal/Treatment Plan - Goal/Treatment Plan Need for Continued Stay: Remain at risks for inpatient hospitalization, Severe depression anxiety, Discharge may exacerbated symptoms, Severe functional impairment Estimated Date of D/C: 09/20/17 (will monitor closely)
[2017-09-20 07:25] VITALS: BP 100/59; PULSE 56; RESP 21; TEMP 97.9
--- NOTE | 2017-09-20 13:31 | PN ---
DATE: SUBJECTIVE: I am told he is being discharge today. I think his family is going to [place], they are going together. MEDICATIONS: He is on Ativan, Cogentin, Haldol, milk of magnesia, Risperdal, Sonata, and Tylenol. PHYSICAL EXAMINATION: VITAL SIGNS: Temperature 97.9, pulse 66, blood pressure 100/59, and respiratory rate 21. HEENT: His head is atraumatic and normocephalic. HEART: Regular rate. LUNGS: Clear to auscultation. ABDOMEN: Soft. EXTREMITIES: No edema. PLAN: He is fairly stable for himself. I do not think he is going to much better than the way he is. I think he improves since he has been in the hospital as per Psychiatry. He has severe depression, anxiety, and paranoia and hopefully he will do well in the outpatient, if he is discharged. Mikey Hurtado DO
--- NOTE | 2017-09-20 13:37 | PCM.PYCHDC ---
Mental Status Examination - Mental Status Examination Orientation: Person, Place, Situation, Time Memory: Intact Mood: Neutral Affect: Blunted Speech: Appropriate Attention: Poor Concentration: Poor Association: Loose Fund of Knowledge: Poor Formal Thought Process: Loosening of associations, Circumstantial Description of patient's judgement and insight: Patient denies being suicidal or homicidal, appears in no imminent danger of hurting himself or others. His insight is poor regarding his mental illness. Patient would benefit from day treatment and supervision with his medication compliance. Psychotic Thoughts and Behaviors: Patient denies the presence of hallucinations, delusions, or paranoia, however he has chronic paranoid trends. Suicidal Ideation: No Current Homicidal Ideation?: No Discharge Summary - Discharge Note Reason for Hospitalization: Patient is a single 21 year old male with reported history of bipolar disorder and schizophrenia (likely Schizoaffective disorder), at least 10 prior psychiatric hospitalizations-just recently 2011, noncompliance with medications for at least three months, who was transferred from [facility] after he was brought in by ambulance accompanied by his brother. Apparently patient became lost wandering in the community and requested help from a stranger to call his family. The lady called the police because she was concerned that he was behaving strangely. ER records from [facility] indicated that brother was interviewed and reported patient has been a decompensating since stopping his medications a few months ago. Patient has been vegetating and isolating in his room. His hygiene and sleep have been poor. Parents are also very concerned about patient wandering unknown places for hours at a time. Brother also indicated patient punched a wall and verbalize suicidal thoughts last week. Laboratory Data: Routine CBC from 09/09/2017 WNL Consultations:: List each consultation separately and include: 1. Reason for request. 2. Findings. 3. Follow-up Consultations: Patient was medically cleared in the emergency room for psychiatric hospitalization on 09/07/2017, no consults were called, patient medically stable. Summary of Hospital Course include:: 1. Description of specific treatment plan utilized for patients during their course of treatmen. 2. Summarize the time- course for resolution of acute symptoms and/or regressed behaviors. 3. Describe issues identified and worked on during hospitalization. 4. Describe medication utilized. 5. Describe medical problems identified and treated. 6. Reassessment of suicide risk Summary of Hospital Course: Patient's treatment plan included the following: Psychoeducation/psychotherapy Psychopharmacology/adjustment of medications as needed/ monitoring possible side effects Evaluate pt on daily basis Compliance with medications and follow up appointments Long acting medication discussed with pt, pt was noncompliant with meds Suicide and homicide risk assessment and prevention, coping strategies, safety plan Relapse prevention Reduction of symptoms Improve functional status Possible assertive community treatment Cognitive behavioral therapy Family involvement, pt give consent for collaterals, SW asked to give a call Possible social skill training as outpatient - Diagnosis (1) Depression Current Visit: Yes Status: Resolved Priority: Low (2) Psychosis Current Visit: Yes Status: Chronic Priority: High (3) Schizoaffective disorder Current Visit: Yes Status: Chronic Priority: Medium - Final Diagnosis (DSM 5) Disposition: HOME/ ROUTINE Prescriptions/Medication Reconciliation: Benztropine [Cogentin] 1 mg PO 1600 #14 tab Benztropine [Cogentin] 1 mg PO AMHS #28 tab LORazepam [Ativan] 1 mg PO AMHS #28 tab risperiDONE [RisperDAL] 3 mg PO AMHS #28 tab Zaleplon [Sonata] 5 mg PO HS PRN #10 cap PRN Reason: Insomnia - Smoking Cessation Smoking Cessation Medication prescribed: No Reason for not providing: Patient not a smoker - Antipsychotic Medications Pt discharged on 2 or more routine antipsychotic medications: No
== END 2017-09-20 14:56 | disposition home or self-care (01) | DRG 885 ==
LOC: ED 14:36 → PSYC 14:47 → ED 15:00 → PSYC 09-08 00:07 → ERH 09-09 09:52 → PSYC 09-09 09:56
PROVIDERS: ADMIT Psychiatry & Neurology Psychiatry; ATTEND Psychiatry & Neurology Psychiatry
PROC: GZ3ZZZZ Medication Management (ICD-10-PCS; principal; 2017-09-07)
DX: F25.9 Schizoaffective disorder, unspecified (principal); F22 Delusional disorders; F41.9 Anxiety disorder, unspecified; Z91.14 Patient's other noncompliance with medication regimen